=== PATIENT | female | born 1970 | race Caucasian/White ===

== ENCOUNTER 2020-07-10 07:20 | Emergency (ER) | payer MEDICARE ==
[2020-07-10] MEDS: Lidocaine 1% with EPINEPHrine 1:100,000 20 ML MDV INFILT STA (07:35)
[2020-07-10] MEDS: Bupivacaine 0.5% 30 ML SDV INJECT STA (07:35)
[2020-07-10] MEDS: Acetaminophen/HYDROcodone 325-5 MG Tab PO ONE (08:55)
[2020-07-10] MEDS: Amoxicillin/Clavulanate K 875-125 MG Tab PO ONE (08:56)
[2020-07-10] MEDS: Diphtheria,Pertussis(Acell),Tetanus Vaccine 0.5 ML Syringe IM ONE (09:12)
--- NOTE | 2020-07-10 09:17 | EDM.PDOC ---
ED HPI GENERAL MEDICAL PROBLEM - General Chief Complaint: Bite:Animal, Insect Stated Complaint: Dog Bite Time Seen by Provider: 07/10/20 07:38 Source of Information: Reports: Patient History Limitations: Reports: No Limitations - History of Present Illness INITIAL COMMENTS - FREE TEXT/NARRATIVE: Patient comes emergency department today from home with concerns of a dog bite to her left arm. Just prior to arrival this morning the patient had 2 of her Huskies get into a fight while they were sleeping. They subsequently bit her left arm. She is unsure of when her last tetanus shot was. After checking with the vet her 2 dogs are up-to-date on their rabies vaccinations. None of the dogs have been ill. She sustained multiple injuries to her left forearm. 2 on the volar surface and one larger open area on the dorsal surface of her left forearm. She complains of severe pain on the left dorsal aspect of the forearm and she complains of paresthesias to the third fourth and fifth finger of the left hand. She denies any change in the functionality of her left upper ex tremity. No Covid exposure no Covid symptoms. 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 (see below) Left Arm Pain Score (Numeric/FACES): 8 - Related Data Allergies Allergy/AdvReac Type Severity Reaction Status Date / Time No Known Allergies Allergy Verified 07/10/20 07:33 Home Meds: Home Meds Amoxicillin/Potassium Clav [Augmentin 875-125 Tablet] 1 each PO BID #10 tablet 07/10/20 [Rx] Hydrocodone/Acetaminophen [Talmo 5-325 Tablet] 1 each PO Q4HR PRN #8 tablet 07/10/20 [Rx] Social & Family History - Tobacco Use Tobacco Use Status *Q: Never Tobacco User - Recreational Drug Use Recreational Drug Use: No ED ROS GENERAL - Review of Systems Review Of Systems: Comprehensive ROS is negative, except as noted in HPI. ED EXAM, ANIMAL BITE - Physical Exam Exam: See Below Exam Limited By: No Limitations General Appearance: Alert, WD/WN, No Apparent Distress Eye Exam: Bilateral Eye: EOMI, PERRL Respiratory/Chest: No Respiratory Distress Cardiovascular: Normal Peripheral Pulses Peripheral Pulses: 2+: Radial (L), Radial (R) Neurological: Alert, Oriented Psychiatric: Normal Affect, Normal Mood Skin Exam: Normal Color, Warm/Dry Front/Back Body Diagram: 1 - There is a 2 cm diameter flap laceration into the subcutaneous tissue that does not injure any of the underlying structures. No active bleeding. 2 - There is an aprox 2.5cm diameter flap laceration to the subcutaneous tissue. There is no injury of the deeper structures of the left forearm. There is no foreign material or debris. 3 - There is a 3.5 cm diameter flap laceration on the dorsal aspect that extends into the muscle of the anterior forearm. No foreign material. No tendon injury easily identified. ED ANIMAL BITE PROCEDURES - Laceration/Wound Repair Left Ventral Arm Lac/Wound Length In cm: 2 Appearance: Subcutaneous, Clean Distal NVT: Neuro & Vascular Intact Anesthetic Type: Local Local Anesthesia - Lidocaine (Xylocaine): 1% with EPI Local Anesthesia - Bupivicaine (Marcaine): 0.5% Plain Local Anesthetic Volume: 4cc Skin Prep: Chlorhexidine (Hibiciens), Saline Saline Irrigation (cc's): 100 Exploration/Debridement/Repair: Wound Explored, In a Bloodless Field, Explored to Base, No Foreign Material Found Closed With: Sutures Suture Size: 4-0 Suture Type: Nylon Left Dorsal Arm Lac/Wound Length In cm: 2.5 Appearance: Subcutaneous, Clean Distal NVT: Neuro & Vascular Intact Anesthetic Type: Local Local Anesthesia - Lidocaine (Xylocaine): 1% with EPI Local Anesthesia - Bupivicaine (Marcaine): 0.5% Plain Local Anesthetic Volume: 5cc Skin Prep: Chlorhexidine (Hibiciens), Saline Saline Irrigation (cc's): 200 Exploration/Debridement/Repair: Wound Explored, In a Bloodless Field, Explored to Base Closed With: Sutures Suture Size: 4-0 Tetanus Status Addressed: Yes Left Arm Lac/Wound Length In cm: 3.5 Appearance: Subcutaneous, Muscle, Irregular, Mildly Contaminated (dog hair) Distal NVT: Neuro & Vascular Intact Anesthetic Type: Local Local Anesthesia - Lidocaine (Xylocaine): 1% with EPI Local Anesthesia - Bupivicaine (Marcaine): 0.5% Plain Local Anesthetic Volume: Other (7mls) Skin Prep: Chlorhexidine (Hibiciens), Saline Saline Irrigation (cc's): 500 Exploration/Debridement/Repair: Wound Explored, In a Bloodless Field, Explored to Base Closed With: Sutures Suture Size: 4-0 Complication Description: This wound was only loosely approximated due to the deep structure involvement of the muscle that was not repaired as per the insturction of the ortho surgeon in [place] At [facility]. Course - Vital Signs Last Recorded V/S: Last Vital Signs Temp 98 F 07/10/20 07:39 Pulse 71 07/10/20 07:39 Resp 14 07/10/20 07:39 BP 121/82 07/10/20 07:39 Pulse Ox 98 07/10/20 07:39 - Orders/Labs/Meds Meds: Medications Discontinued Medications Generic Name Dose Route Start Last Admin Trade Name Freq PRN Reason Stop Dose Admin Hydrocodone Bitart/Acetaminophen 1 tab 07/10/20 08:38 07/10/20 08:55 Talmo 325-5 Mg PO 07/10/20 08:39 1 tab ONETIME ONE Administration Amoxicillin/Clavulanate Potassium 1 tab 07/10/20 08:38 07/10/20 08:56 Augmentin 875 Mg/125 Mg PO 07/10/20 08:39 1 tab ONETIME ONE Administration Bupivacaine HCl 30 ml 07/10/20 07:31 07/10/20 07:35 Marcaine 0.5% INJECT 07/10/20 07:32 30 ml NOW STA Administration Diphtheria/Tetanus/Acell Pertussis 0.5 ml 07/10/20 09:05 07/10/20 09:12 Boostrix IM 07/10/20 09:06 0.5 ml .ONCE ONE Administration Lidocaine/Epinephrine 20 ml 07/10/20 07:31 07/10/20 07:35 Xylocaine 1% With Epinephrine 1:100,000 INFILT 07/10/20 07:32 20 ml NOW STA Administration - Re-Assessments/Exams Free Text/Narrative Re-Assessment/Exam: The patient was initially anesthetized with 1% lidocaine with epinephrine and 0.5% bupivacaine with good anesthesia. All the wounds were cleansed per the procedure note. They were explored to the base. No foreign material was notified. Due to the rather deep structures injured on the ventral aspect of the left forearm that clearly injured the muscle I called and spoke with at [facility] the ortho commercial litigation attorney. He would like the wound closed loosely and he will see in the clinic tuesday. Augmentin 875/125 1 tablet p.o. Hydrocodone 1 tablet p.o. These are dog bites and the risk for infection is quite a bit higher these are rather large defects that if we do not repair will have long-term sequelae. They were cleansed aggressively with sterile water and chlorhexidine. There is also a total of 4-5 other very superficial abrasions and small puncture wounds that were not repaired. Please add this to the examination as well. The 2 superficial lacerations on the dorsal aspect were repaired the ventral and was loosely closed. She was given guidance to follow-up with orthopedics at [facility] on either Tuesday or Tuesday. She is comfortable with this plan and her questions were answered. Departure - Departure Time of Disposition: 09:12 Disposition: Home, Self-Care 01 Clinical Impression: Dog bite of extremity - Discharge Information Prescriptions: Amoxicillin/Potassium Clav [Augmentin 875-125 Tablet] 1 each PO BID #10 tablet Hydrocodone/Acetaminophen [Talmo 5-325 Tablet] 1 each PO Q4HR PRN #8 tablet PRN Reason: Pain Instructions: Antibiotic Medicine, Adult, [id number], Pain Medicine Instructions, [id number], Antibiotic Medicine, Pediatric Referrals: Holley Cerrato OPERATIONS RESEARCH ENGINEER [Primary Care Provider] - Forms: ED Department Discharge Additional Instructions: Cleanse the wounds on the under surface of the left forearm twice daily with soap and water. Tylenol and or Ibuprofen as needed for pain. If pain not controlled with above. Talmo 1 tablet every 4-6 hrs with food as needed for pain. Caution sedation. Rx sent to [facility]. Bacitracin and bandage until healed. Watch for signs of infection. Augmentin 1 tablet twice daily for the next 5 days. First dose given in the ED and RX sent to [facility]. Sutures out on the under surface of the forearm in [address] Arriaga the orthopaedic surgeon call [phone] today to make an appointment either tuesday or tuesday. Tell them when making the appointment you were seen in the ED and he is expecting you. If you have problems please let us know in the ED. Return to the ED if new or worsening symptoms. Follow up with ortho as above. Sepsis Event Note (ED) - Evaluation Sepsis Screening Result: No Definite Risk - Focused Exam Vital Signs: Vital Signs Temp Pulse Resp BP Pulse Ox 07/10/20 07:39 98 F 71 14 121/82 98
== END 2020-07-10 09:54 | disposition home or self-care (01) ==
LOC: VM.ED 07:20 → SUPCPDRO 07:20 → VM.ED 09:54
DX: S51.852A Open bite of left forearm, initial encounter (principal); Z23 Encounter for immunization; W54.0XXA Bitten by dog, initial encounter
CPT/HCPCS: 12034; 90471; 90715; 99283-25; A9270-GY; J3490

== ENCOUNTER → 2022-05-03 | Day surgery (SDC) | payer OTHER, MEDICARE ==
[~2022-05-03] MED LIST: Acetaminophen 325 MG Tab ONE; Lactated Ringers 1,000 ML IV SCH; Propofol 200 MG/20 ML SDV ONE; fentaNYL 100 MCG/2 ML SDV ONE
== END ==
LOC: VM.SDS 06:00
PROVIDERS: ATTEND Surgery
DX: R10.9 Unspecified abdominal pain (principal); M79.7 Fibromyalgia; Z79.899 Other long term (current) drug therapy; Z79.82 Long term (current) use of aspirin; F31.9 Bipolar disorder, unspecified
CPT/HCPCS: 00812; 45378; A9270; J2704; J3010; J7120